=== PATIENT | female | born 1975 | race African-American/Black ===

== ENCOUNTER 2017-10-17 04:12 | Emergency (ER) | payer SELFPAY ==
[2017-10-17 05:31] VITALS: BP 132/83; PULSE 84; TEMP 98.4; BMI 31.7
[2017-10-17] MEDS ORDERED: SULFAMETHOXAZOLE/TRIMETHOPRIM 800MG/160MG D.S. TABLET PO ONE (05:53)
--- NOTE | 2017-10-17 05:53 | PDOC ---
History of Present Illness - General History Source: Patient <Daryl Gaitan - Last Filed: 10/17/17 05:55> - General History Source: Patient Exam Limitations: No Limitations - History of Present Illness Initial Comments: 10/17/17 05:59 The patient is a 42 year old female with a significant PMH of asthma who presents to the emergency department with right index finger pain beginning approximately 2 days ago. The patient reports recently having her nails done and her cuticles cut. She presents today with pain and swelling to the lateral aspect of her right index finger. The patient reports she is right handed. She denies any other complaints. Allergies: NKA Past surgical history: None reported. Social history: Current everyday smoker. No reported alcohol or drug use. PCP: None reported. <Yomi Costello - Last Filed: 10/17/17 06:00> - General Chief Complaint: Pain Stated Complaint: R HAND PAIN Time Seen by Provider: 10/17/17 05:51 Past History - Past Medical History Asthma: Yes COPD: No - Suicide/Smoking/Psychosocial Hx Smoking History: Current every day smoker Number of Cigarettes Smoked Daily: 5 Information on smoking cessation initiated: No Hx Alcohol Use: No Drug/Substance Use Hx: No <KandyDaryl - Last Filed: 10/17/17 05:55> <Yomi Costello - Last Filed: 10/17/17 06:00> - Past Medical History Home Medications: Ambulatory Orders Ibuprofen 800 mg PO TID #30 tablet 10/17/17 Sulfamethoxazole/Trimethoprim [Bactrim *Ds*] 1 tab PO BID #14 tablet 10/17/17 Review of Systems - Review of Systems Able to Perform ROS?: Yes Comments:: 10/17/17 05:59 CONSTITUTIONAL: Absent: fever, chills, diaphoresis, generalized weakness, malaise, loss of appetite HEENT: Absent: rhinorrhea, nasal congestion, throat pain, throat swelling, difficulty swallowing, mouth swelling, ear pain, eye pain, visual Changes CARDIOVASCULAR: Absent: chest pain, syncope, palpitations, irregular heart rate, lightheadedness , peripheral edema RESPIRATORY: Absent: cough, shortness of breath, dyspnea with exertion, orthopnea, wheezing, stridor, hemoptysis GASTROINTESTINAL: Absent: abdominal pain, abdominal distension, nausea, vomiting, diarrhea, constipation, melena, hematochezia GENITOURINARY: Absent: dysuria, frequency, urgency, hesitancy, hematuria, flank pain, genital pain MUSCULOSKELETAL: Absent: myalgia, arthralgia, joint swelling SKIN: (+) Right 2nd finger pain and swelling. Absent: rash, itching, pallor HEMATOLOGIC/IMMUNOLOGIC: Absent: easy bleeding, easy bruising, lymphadenopathy, frequent infections ENDOCRINE: Absent: unexplained weight gain, unexplained weight loss, heat intolerance, cold intolerance NEUROLOGIC: Absent: headache, focal weakness or paresthesias, dizziness, unsteady gait, seizure, mental status changes, bladder or bowel incontinence PSYCHIATRIC: Absent: anxiety, depression, suicidal or homicidal ideation, hallucinations. <Yomi Costello - Last Filed: 10/17/17 06:00> *Physical Exam - Vital Signs Last Vital Signs Temp Pulse Resp BP Pulse Ox 98.4 F 84 18 132/83 99 10/17/17 05:25 10/17/17 05:25 10/17/17 05:25 10/17/17 05:25 10/17/17 05:25 <Daryl Gaitan - Last Filed: 10/17/17 05:55> - Vital Signs Last Vital Signs Temp Pulse Resp BP Pulse Ox 98.4 F 84 18 132/83 99 10/17/17 05:25 10/17/17 05:25 10/17/17 05:25 10/17/17 05:25 10/17/17 05:25 - Physical Exam Comments: 10/17/17 06:00 GENERAL: Well developed, well nourished. Awake and alert. No acute distress. HEENT: Normocephalic, atraumatic. PERRLA, EOMI. No conjunctival pallor. Sclera are non- icteric. Moist mucous membranes. Oropharynx is clear. NECK: Supple. Full ROM. No JVD. Carotid pulses 2+ and symmetric, without bruits. No thyromegaly. No lymphadenopathy. CARDIOVASCULAR: Regular rate and rhythm. No murmurs, rubs, or gallops. Distal pulses are 2+ and symmetric. PULMONARY: No evidence of respiratory distress. Lungs clear to auscultation bilaterally. No wheezing, rales or rhonchi. ABDOMINAL: Soft. Non-tender. Non-distended. No rebound or guarding. No organomegaly. Normoactive bowel sounds. MUSCULOSKELETAL: Normal range of motion at all joints. No bony deformities or tenderness. No CVA tenderness. EXTREMITIES: No cyanosis. No clubbing. No edema. No calf tenderness. SKIN: (+) Firm area lateral to the right 2nd finger cuticle, nonindurated. Mild erythema and edema. Nonfluctuant. Warm and dry. Normal capillary refill. No rashes. No jaundice. NEUROLOGICAL: Alert, awake, appropriate. Cranial nerves 2-12 intact. No deficits to light touch and temperature in face, upper extremities and lower extremities. No motor deficits in the in face, upper extremities and lower extremities. Normoreflexic in the upper and lower extremities. Normal speech. Toes are downgoing bilaterally. Gait is normal without ataxia. PSYCHIATRIC: Cooperative. Good eye contact. Appropriate mood and affect. <Yomi Costello - Last Filed: 10/17/17 06:00> Medical Decision Making - Medical Decision Making 10/17/17 05:56 Dr. Gaitan: The scribe's documentation has been prepared under my direction and personally reviewed by me in its entirery. I confirm that the note above accurately reflects all work, treatment, procedures, and medical decision making performed by me. <Daryl Gaitan - Last Filed: 10/17/17 05:55> *DC/Admit/Observation/Transfer - Discharge Dispostion Admit: No <Daryl Gaitan - Last Filed: 10/17/17 05:55> - Attestations Scribe Attestion: 10/17/17 06:00 Documentation prepared by Yomi Costello, acting as medical billing clerk for Daryl Gaitan DO. <Yomi Costello - Last Filed: 10/17/17 06:00> Diagnosis at time of Disposition: Paronychia - Discharge Dispostion Disposition: HOME - Prescriptions Prescriptions: Ibuprofen 800 mg PO TID #30 tablet Sulfamethoxazole/Trimethoprim [Bactrim *Ds*] 1 tab PO BID #14 tablet - Patient Instructions Printed Discharge Instructions: DI for Wound Infection
[2017-10-17] MEDS ORDERED: IBUPROFEN 400 MG TABLET (FP) PO ONE ×2 (05:54→06:03)
[2017-10-17] MEDS ORDERED: SULFAMETHOXAZOLE/TRIMETHOPRIM 800MG/160MG D.S. TABLET ONE (06:02)
== END 2017-10-17 06:14 | disposition home or self-care (01) ==
LOC: JER 04:12
DX: F17.210 Nicotine dependence, cigarettes, uncomplicated (principal)
CPT/HCPCS: 99281-25

== ENCOUNTER 2017-10-26 00:45 | Emergency (ER) | payer OTHER ==
[2017-10-26 02:35] VITALS: BP 127/76; PULSE 98; TEMP 97.7; BMI 31.7
[2017-10-26 02:43] LABS: HCG,QUALITATIVE URINE NEGATIVE; URINE APPEARANCE CLEAR; URINE BILIRUBIN NEGATIVE (<2.0 mg/dL); URINE BLOOD NEGATIVE (NEGATIVE); URINE COLOR LTYELLOW; URINE GLUCOSE (UA) NEGATIVE (NEGATIVE); URINE KETONE NEGATIVE (NEGATIVE); URINE LEUK ESTERASE NEGATIVE (NEGATIVE); URINE NITRITE NEGATIVE (NEGATIVE); URINE PROTEIN 1+ (NEGATIVE); URINE UROBILINOGEN NEGATIVE mg/dL (0.2-1.0)
[2017-10-26 02:54] LABS: EPI CELLS RARE /HPF (FEW); URINE BACTERIA RARE /hpf (NONE SEEN); URINE MUCUS RARE
--- NOTE | 2017-10-26 03:16 | PDOC ---
History of Present Illness - General History Source: Patient <Daryl Gaitan - Last Filed: 10/26/17 03:10> - General History Source: Patient, Old Records Exam Limitations: No Limitations - History of Present Illness Initial Comments: 10/26/17 03:23 Patient is a 42 year old female with a significant past medical history of Diabetes, asthma who presents to the ED with complaints of dysuria that began 3 days ago. Patient reports experiencing gradual dysuria that began 3 days ago while at home, showing no signs of subsiding prompting her to come into the ED for further evaluation. She reports being on Bactrim prescription for a previous finger abscess, as well as reporting white cheesy vaginal discharge, and lower superpubic pain. Denies chest pain, Sob. Denies nausea, vomiting. Denies contact with sick individuals, out of state travelling. Denies out of state travelling. Allergies: NKA Past surgical history: None reported. Social history: Current everyday smoker. No reported alcohol or drug use. PCP: None reported. <Kirk Valencia - Last Filed: 10/26/17 03:24> - General Chief Complaint: Pain, Acute Stated Complaint: ABD PAIN Time Seen by Provider: 10/26/17 03:07 Past History - Past Medical History Asthma: Yes COPD: No Other medical history: tubal pregnancies x's 2 - Suicide/Smoking/Psychosocial Hx Smoking History: Current every day smoker Number of Cigarettes Smoked Daily: 5 Information on smoking cessation initiated: No Hx Alcohol Use: No Drug/Substance Use Hx: No <Daryl Gaitan - Last Filed: 10/26/17 03:10> <Kirk Valencia - Last Filed: 10/26/17 03:24> - Past Medical History Allergies/Adverse Reactions: Allergies Allergy/AdvReac Type Severity Reaction Status Date / Time shellfish derived Allergy Verified 10/26/17 02:32 Home Medications: Ambulatory Orders Miconazole Nitrate [Monistat-7] 100 mg VG HS #7 supp.vag 10/26/17 levoFLOXacin [Levaquin -] 500 mg PO DAILY #4 tablet 10/26/17 Review of Systems - Review of Systems Able to Perform ROS?: Yes Comments:: 10/26/17 03:24 CONSTITUTIONAL: Absent: fever, no chills, no fatigue EYES: Absent: visual changes ENT: Absent: ear pain, no sore throat CARDIOVASCULAR: Absent: chest pain, no palpitations RESPIRATORY: Absent: cough, no SOB GI: Absent: abdominal pain, no nausea, no vomiting, no constipation, no diarrhea GENITOURINARY: +Vaginal discharge. +Dysuria Absent: no frequency, no hematuria MUSCULOSKELETAL: +Lower superpubic pain. Absent: back pain, no arthralgia, no myalgia SKIN: Absent: rash <Kirk Valencia - Last Filed: 10/26/17 03:24> *Physical Exam - Vital Signs Last Vital Signs Temp Pulse Resp BP Pulse Ox 97.7 F 98 H 18 127/76 96 10/26/17 02:23 10/26/17 02:23 10/26/17 02:23 10/26/17 02:23 10/26/17 02:23 <Daryl Gaitan - Last Filed: 10/26/17 03:10> - Vital Signs Last Vital Signs Temp Pulse Resp BP Pulse Ox 97.7 F 98 H 18 127/76 96 10/26/17 02:23 10/26/17 02:23 10/26/17 02:23 10/26/17 02:23 10/26/17 02:23 - Physical Exam Comments: 10/26/17 03:24 GENERAL: Well-appearing, well-nourished. No apparent distress. HEENT: Normocephalic, atraumatic. PERRL, EOM intact. CARDIOVASCULAR: Normal S1, S2. Regular rate and rhythm. PULMONARY: Clear to auscultation bilaterally. ABDOMEN: +Superpubic tenderness minimal . Soft, non-distended, non-tender. EXTREMITIES: Normal ROM in all four extremities. No gross deformities. SKIN: Warm, dry. No rash NEUROLOGICAL: No focal neurological deficits. <Kirk Valencia - Last Filed: 10/26/17 03:24> ED Treatment Course - ADDITIONAL ORDERS Additional order review: Laboratory Results 10/26/17 02:30 Urine Color Ltyellow Urine Appearance Clear Urine pH 5.0 Ur Specific [place] 1.012 Urine Protein 1+ H Urine Glucose (UA) Negative Urine Ketones Negative Urine Blood Negative Urine Nitrite Negative Urine Bilirubin Negative Urine Urobilinogen Negative Ur Leukocyte Esterase Negative Urine WBC (Auto) 1 Urine RBC (Auto) 11 Ur Epithelial Cells Rare Urine Bacteria Rare Urine Mucus Rare Urine HCG, Qual Negative <Daryl Gaitan - Last Filed: 10/26/17 03:10> - ADDITIONAL ORDERS Additional order review: Laboratory Results 10/26/17 02:30 Urine Color Ltyellow Urine Appearance Clear Urine pH 5.0 Ur Specific [place] 1.012 Urine Protein 1+ H Urine Glucose (UA) Negative Urine Ketones Negative Urine Blood Negative Urine Nitrite Negative Urine Bilirubin Negative Urine Urobilinogen Negative Ur Leukocyte Esterase Negative Urine WBC (Auto) 1 Urine RBC (Auto) 11 Ur Epithelial Cells Rare Urine Bacteria Rare Urine Mucus Rare Urine HCG, Qual Negative - Medications Given in the ED: ED Medications Discontinued Medications Generic Name Dose Route Start Last Admin Trade Name Freq PRN Reason Stop Dose Admin Levofloxacin 500 mg 10/26/17 03:11 10/26/17 03:16 Levaquin - PO 10/26/17 03:12 500 mg ONCE ONE Administration <Kirk Valencia - Last Filed: 10/26/17 03:24> Medical Decision Making - Medical Decision Making 10/26/17 03:16 Dr. Gaitan: The scribe's documentation has been prepared under my direction and personally reviewed by me in its entirery. I confirm that the note above accurately reflects all work, treatment, procedures, and medical decision making performed by me. <Daryl Gaitan - Last Filed: 10/26/17 03:10> *DC/Admit/Observation/Transfer - Discharge Dispostion Admit: No <Daryl Gaitan - Last Filed: 10/26/17 03:10> - Attestations Scribe Attestion: 10/26/17 03:24 Documentation prepared by Kirk Valencia, acting as medical billing specialist for Daryl Gaitan MD/DO. <Kirk Valencia - Last Filed: 10/26/17 03:24> Diagnosis at time of Disposition: Dysuria, Елена infection - Discharge Dispostion Disposition: HOME Condition at time of disposition: Stable - Prescriptions Prescriptions: levoFLOXacin [Levaquin -] 500 mg PO DAILY #4 tablet Miconazole Nitrate [Monistat-7] 100 mg VG HS #7 supp.vag - Referrals Referrals: Chapito Murphy MD [Primary Care Provider] - - Patient Instructions Printed Discharge Instructions: DI for Vaginal Yeast Infection, DI for Dysuria -- Adult Additional Instructions: use medication as directed. Please follow up with your obstetrics/gynecology nurse for re-evaluation of symptoms - Post Discharge Activity
== END 2017-10-26 03:18 | disposition home or self-care (01) ==
LOC: JER 00:45
DX: B37.3 Candidiasis of vulva and vagina (principal); E11.9 Type 2 diabetes mellitus without complications; Z79.84 Long term (current) use of oral hypoglycemic drugs; Z87.09 Personal history of other diseases of the respiratory system; F17.210 Nicotine dependence, cigarettes, uncomplicated
CPT/HCPCS: 81003; 81015; 84703; 87086; 99282-25